=== PATIENT | female | born 1970 | race Caucasian/White ===

== ENCOUNTER → 2020-10-24 03:40 | Outpatient (CLI) | payer BC, SELFPAY ==
[2020-10-24 21:09] LABS: SARS-CoV-2 RNA PCR Negative
== END ==
PROVIDERS: PCP Family Medicine; Visit Provider Internal Medicine Gastroenterology
DX: Z01.812 Encounter for preprocedural laboratory examination (principal); Z20.822 Contact with and (suspected) exposure to COVID-19
CPT/HCPCS: C9803; U0003; U0005

== ENCOUNTER 2020-10-27 04:22 | Day surgery (SDC) | payer BC, SELFPAY ==
[2020-10-20 12:02] VITALS: BMI 43.5
--- NOTE | 2020-10-27 09:14 | WPDANESEPPF ---
Anes - Initial Pre Proc Eval Procedure: Operation Date: 10/27/20 11:45 Proposed Procedures p Screening Colonoscopy - Sammy Amador MD Date/Time: 10/27/20 09:14 Surgeon: Sammy Amador MD Pre Op Diagnosis: neoplasm screening Patient Data Age: 50 Gender: F Height: 1.57 m Weight: 108 kg Allergies Allergy/AdvReac Type Severity Reaction Status Date / Time Sulfa (Sulfonamide Allergy Unknown Nausea Verified 10/27/20 10:47 Antibiotics) Home Medications Medication Instructions Recorded Confirmed Type irbesartan 150 1 tablet PO DAILY #90 tablet 11/16/19 10/20/20 Rx mg-hydrochlorothiazide 12.5 mg tablet fexofenadine [Katia Allergy] 1 tab-cap PO DAILY 07/28/20 10/27/20 History Patient hx anesthesia problems: none Family hx anesthesia problems: none PMFSH Past Medical History Medical History (Updated 10/03/20 @ 17:16 by Bandar Ricks MD) Allergic rhinitis COVID-19 Dyspepsia Edema, peripheral Encounter for wellness examination in adult Essential (primary) hypertension Exposure to COVID-19 virus Family history of malignant neoplasm of colon in first degree relative diagnosed when younger than 60 years of age Hypersomnia Mildly obese Mixed hyperlipidemia Morbid obesity with BMI of 40.0-44.9, adult Obstructive sleep apnea UTI (urinary tract infection) Family History Family History (Updated 10/21/18 @ 17:10 by DOCTOR UNKNOWN) Mother Diabetes mellitus Family history of hypercholesterolemia Hypertension Sibling Family history of mental disorder Depression Hypertension Patient's sister is in good health Patient's sister is , Onset Age: 43 Carcinoma of colon Father Hypertension Grandparent Hypertension Family history of cardiovascular disease Acute myocardial infarction Family history of malignant neoplasm of brain Social History Social History (Updated 07/28/20 @ 08:23 by Pool Claudio CMA) Smoking status: Never smoker Alcohol intake: current Substance use: never Living arrangements: with family Gender identity (if verbalized by the patient): Female Spiritual care concerns: No Anes - Eval Final PreProcedure Day of Procedure 10/27/20 09:14 Patient weight: morbidly obese Heart: regular rate and rhythm Lungs: clear to auscultation and normal air movement Airway: Mallampati scale class II Neurological: alert and oriented Last oral intake: >/= 8 hours ASA classification: III Emergent: no Anesthetic plan: proceed Anesthesia type and monitoring: general GIVS Informed Consent: The patient's anesthetic plan and its attendant risks and benefits were discussed with the patient/family/POA. Questions were solicited and answers provided to the satisfaction of the patient/family/POA.
[2020-10-27 10:49] VITALS: BP 146/84; PULSE 82; RESP 20; TEMP 36.3; O2SAT 98
[2020-10-27] MEDS: LACTATED RINGERS 1,000 ML 150 ML IV CONT (11:00)
--- NOTE | 2020-10-27 11:30 | PM.HPGS ---
History of Present Illness History of Present Illness Consent: Risks, benefits, and alternatives have been discussed and questions answered. Patient agrees to proceed with procedure. Chief complaint: neoplasm screening Narrative: Nora De Santiago is a 50 year old female last colonoscopy 6 years ago, sister had colon cancer Review of Systems Constitutional: Constitutional: Denies headache(s) and Denies weakness Eyes: Eyes: Denies blurry vision ENT: Reports Normal hearing present, Denies headache(s) and Denies neck pain Cardiovascular: Cardiovascular: Denies chest pain and Denies dyspnea Respiratory: Respiratory: Denies dyspnea Gastrointestinal: Gastrointestinal: Reports no additional gastrointestinal complaints Genitourinary: Genitourinary: Denies dysuria Musculoskeletal: Musculoskeletal: Denies neck pain Integumentary/Breasts: Skin/Breast: Denies dry skin Neurologic: Reports Normal hearing present, Denies headache(s) and Denies weakness Psychiatric: Psychiatric: Denies anxiety Endocrine: Endocrine: Denies change in body appearance Hematologic/Lymphatic: Hematologic/Lymphatic: Denies easy bleeding Allergic/Immunologic: Allergic/Immunologic: Denies urticaria PMFSH Past Medical History Medical History (Updated 10/03/20 @ 17:16 by Bandar Ricks MD) Allergic rhinitis COVID-19 Dyspepsia Edema, peripheral Encounter for wellness examination in adult Essential (primary) hypertension Exposure to COVID-19 virus Family history of malignant neoplasm of colon in first degree relative diagnosed when younger than 60 years of age Hypersomnia Mildly obese Mixed hyperlipidemia Morbid obesity with BMI of 40.0-44.9, adult Obstructive sleep apnea UTI (urinary tract infection) Family History Family History (Updated 10/21/18 @ 17:10 by DOCTOR UNKNOWN) Mother Diabetes mellitus Family history of hypercholesterolemia Hypertension Sibling Family history of mental disorder Depression Hypertension Patient's sister is in good health Patient's sister is , Onset Age: 43 Carcinoma of colon Father Hypertension Grandparent Hypertension Family history of cardiovascular disease Acute myocardial infarction Family history of malignant neoplasm of brain Social History Social History (Updated 07/28/20 @ 08:23 by Pool Claudio [facility]) Smoking status: Never smoker Alcohol intake: current Substance use: never Living arrangements: with family Gender identity (if verbalized by the patient): Female Spiritual care concerns: No Meds Home Medications and Allergies Home Medications Medication Instructions Recorded Confirmed Type irbesartan 150 1 tablet PO DAILY #90 tablet 11/16/19 10/20/20 Rx mg-hydrochlorothiazide 12.5 mg tablet fexofenadine [Katia Allergy] 1 tab-cap PO DAILY 07/28/20 10/27/20 History Allergies Allergy/AdvReac Type Severity Reaction Status Date / Time Sulfa (Sulfonamide Allergy Unknown Nausea Verified 10/27/20 10:47 Antibiotics) Vital Signs Vital Signs - 24 hr 10/27/20 10:49 Temperature 97.4 F L Pulse Rate 82 Respiratory Rate 20 Blood Pressure 146/84 H Pulse Oximetry 98 Exam Const: General: comfortable and no acute distress HENMT: General nose exam: Normal nares present Eyes: General: appearance normal, both eyes and all related structures Neck: Neck: no JVD Resp: Auscultation: clear to auscultation bilaterally Cardio: Rate: regular rate Rhythm: regular rhythm GI: Inspection: non-distended GI Palp: Yes Soft to palpation Skin: General skin exam: normal color Neuro: General: gait normal Speech: normal speech Extrem: General: normal to inspection Psych: Mental Status: mental status grossly normal Assessment and Plan Assessment and plan (1) Family history of malignant neoplasm of colon in first degree relative diagnosed when younger than 60 years of age: Code(s): Z80.0 - Fam
[2020-10-27 11:46] VITALS: BP 106/57; PULSE 74; RESP 15; O2SAT 98
[2020-10-27 11:56] VITALS: BP 112/62; PULSE 67; RESP 15; O2SAT 98
== END 2020-10-27 12:15 | disposition home or self-care (01) ==
PROVIDERS: PCP Family Medicine; Visit Provider Internal Medicine Gastroenterology
PROC: 0DJD8ZZ Inspection of Lower Intestinal Tract, Via Natural or Artificial Opening Endoscopic (ICD-10-PCS; CPT 45378; principal; 2020-10-27 11:45)
DX: Z12.11 Encounter for screening for malignant neoplasm of colon (principal); D12.2 Benign neoplasm of ascending colon; Z80.0 Family history of malignant neoplasm of digestive organs; I10 Essential (primary) hypertension; E66.9 Obesity, unspecified; E78.2 Mixed hyperlipidemia; G47.33 Obstructive sleep apnea (adult) (pediatric); G47.10 Hypersomnia, unspecified
CPT/HCPCS: 45385; 88305; C9803; J2704; J7120; U0003; U0005

== ENCOUNTER 2021-03-14 07:37 | Outpatient (RCR) | payer BC, SELFPAY ==
[2021-03-14 09:15] VITALS: BP 136/87; PULSE 78; RESP 20; TEMP 36.2; O2SAT 98
[2021-03-14] MEDS: ACETAMINOPHEN 325 MG TABLET 650 MG PO (09:18)
[2021-03-14] MEDS: diphenhydrAMINE HCl CAP 25 MG CAPSULE PO (09:19)
[2021-03-14] MEDS: FAMOTIDINE 20 MG TABLET PO (09:19)
[2021-03-14 10:50] VITALS: BP 144/78; PULSE 68; O2SAT 100
== END 2021-03-14 17:00 ==
LOC: AMCINF 07:37
PROVIDERS: PCP Family Medicine; Referring Provider Family Medicine; Visit Provider Internal Medicine Hematology & Oncology
DX: U07.1 COVID-19 (principal); I10 Essential (primary) hypertension
CPT/HCPCS: A9270; M0247

== ENCOUNTER 2024-10-03 09:52 | Emergency (ER) | payer OTHER, SELFPAY ==
--- NOTE | 2024-10-03 09:59 | ED_ITS ---
HPI - Skin/Abscess/Foreign Bdy General Chief complaint: Skin/Abscess/Foreign Body Stated complaint: RASH Time Seen by Provider: 10/03/24 09:59 Source: patient Mode of arrival: ambulatory Limitations: no limitations History of Present Illness HPI narrative: Nora is a 54-year-old female patient presenting to the clinic today with complaints of a rash in her right elbow, left fold of neck, under bilateral breast, under her pannus/abdomen fold, and in the folds of her groin. She reports rash is red, itchy, and acevedo. Symptoms started on Friday. Was Rx prednisone 20mg daily by her PCP and this is not helping. No fever, chills, or body aches. No environment changes, no new soaps, shampoos, detergents, or medications other than prednisone. Related Data Home Medications ?Medication ?Instructions ?Recorded ?Confirmed ?Last Taken ?Type fexofenadine [[place] Allergy] 1 tab-cap PO DAILY PRN Allergies 01/08/21 09/23/24 Unknown History fluticasone propionate 50 1 spray intranasal BID 07/11/22 09/23/24 Unknown History mcg/actuation nasal spray,suspension (Flonase Allergy Relief) Allergies Allergy/AdvReac Type Severity Reaction Status Date / Time Sulfa (Sulfonamide Allergy Unknown Nausea Verified 10/03/24 10:05 Antibiotics) Review of Systems Review of Systems: Pertinent positives per HPI. Patient denies any fever, chills, headache, visual changes, dizziness, cough, runny nose, sore throat, shortness of breath, chest pain, palpitations, nausea, vomiting, diarrhea, constipation, abdominal pain, or any urinary issues. [facility] Past Medical History Medical History Plant dermatitis Hemorrhoids Middle cerebral artery aneurysm MRI of the brain 01/06/2024 with no change of the right MCA aneurysm followed by neurosurgeon. Recheck annually. Acute non-recurrent maxillary sinusitis Breast cancer screening by mammogram mammogram 09/09/2023 with no suspicious lesions. Fibrous breasts. Ocular migraine (08/04/22) CT of the brain, MRI of the brain, cerebral angiogram with minor changes Multiple lesions on CT of brain and spine (08/04/22) 7 mm lytic lesion left clivus with lytic lesions of C2, C3, and C5 on CT of the brain and CT a of the head and neck on 08/04/2022. Seasonal allergic rhinitis Abnormal fasting glucose (07/03/22) fasting glucose 105 on 07/03/2022. Glucose 95 with hemoglobin A1c 4.9 on 01/13/2023. Fasting glucose 92 with hemoglobin A1c 5.5 on 07/26/2023. Glucose 81, hemoglobin A1c 5.3, urine microalbumin ratio of 2 and GFR 68 on 12/31/2023. Acute low back pain without sciatica Lesion of skin of face Screening for diabetes mellitus (DM) Acute bronchitis COVID-19 (03/05/21) 2nd infection with positive test 03/11/2021 Polyp of colon (10/27/20) The patient had a colonoscopy on 10/27/[address] Stephenson with 3 small polyps of the ascending colon. Recheck in 5 years. UTI (urinary tract infection) E coli on 05/16/2022. Dyspepsia Morbid obesity with BMI of 40.0-44.9, adult COVID-19 (~02/18/20) Exposure to COVID-19 virus Mildly obese Encounter for wellness examination in adult Obstructive sleep apnea (~01/06/19) home sleep study 01/06/2019 with [facility] with AHI 8.8 and oxygen saturation at 90% with need for CPAP titration. Edema, peripheral Family history of malignant neoplasm of colon in first degree relative diagnosed when younger than 60 years of age Hypersomnia Mixed hyperlipidemia total cholesterol 207, HDL 39, triglycerides 248, LDL 130 with ratio 5.3 on 07/03/2022. total cholesterol 196, HDL 40, triglycerides 268, LDL 118 with ratio 4.9 on 01/13/2023. Cholesterol 211, HDL 40, triglycerides 283, LDL 127 with ratio 5.3 on 07/26/2023. Cholesterol 191, triglycerides 358, HDL 38, LDL 105 with ratio of 5.0 on 12/31/2023. Essential (primary) hypertension Surgical History Surgical History History of delivery x 2 H/O: hysterectomy Family History Family History Mother Diabetes mellitus Family history of hypercholesterolemia Hypertension Dementia Sibling Family history of mental disorder Depression Hypertension Patient's sister is in good health Patient's sister is , Onset Age: 43 Carcinoma of colon Father Hypertension Grandparent Hypertension Family history of cardiovascular disease Acute myocardial infarction Family history of malignant neoplasm of brain Social History Social History Smoking status: Never smoker Second hand tobacco smoke exposure: No Alcohol intake: current Alcohol use details: very rarely Substance use: never Substance use type: does not use Do You Feel Safe in your Home?: Yes Lack of Transportation: No Lack of Food: Never True Current Housing: I Have Housing Concerned About Future Housing: No Difficulty Paying Gas/Electric Bills: No Difficulty Paying for Meds: No Currently Unemployed: No Education: High School Diploma/GED Difficulty w/ Childcare or Family Care: No Living arrangements: with family Additional living arrangements comments: Occupation/Education: occupation 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 There is no relevant family history pertinent to the patient complaint. Exam Narrative: General: Well-developed, morbidly obese, in no apparent distress Head: Normocephalic, atraumatic. Cardio: Regular rate and rhythm, s1 and s2 normal, no murmur appreciated. Resp: Clear to auscultation bilaterally, no rhonchi, rales, wheezing or rubs. Integumentary: [place], warm, and dry, red, excoriated, itchy rash should to the fold of the left neck, right elbow, under bilateral breasts, under pannus, and in the groin folds, no obvious discharge, skin is peeling and tender/burning Course Course Emergency Course: Portions of this record may have been created with voice recognition software. Level of Care: Express Care Visit Vital Signs Vital signs: Vital Signs Temperature 36.3 C L 10/03/24 10:05 Pulse Rate 80 10/03/24 10:05 Respiratory Rate 16 10/03/24 10:05 Blood Pressure 139/84 10/03/24 10:05 Pulse Oximetry 100 10/03/24 10:05 Temperature 36.3 C L 10/03/24 10:05 Pulse Rate 80 10/03/24 10:05 Respiratory Rate 16 10/03/24 10:05 Blood Pressure 139/84 10/03/24 10:05 Pulse Oximetry 100 10/03/24 10:05 Vital signs reviewed MDM - Skin/Abscess/Foreign Bdy MDM Narrative Medical decision making narrative: At the time of visit patient is resting comfortably on the exam table. Patient appears to be nontoxic. Complaints of a rash in her right elbow, left fold of neck, under bilateral breast, under her pannus/abdomen fold, and in the folds of her groin. She reports rash is red, itchy, and acevdeo. Symptoms started on Friday. Was Rx prednisone 20mg daily by her PCP and this is not helping. No fever, chills, or body aches. No environment changes, no new soaps, shampoos, detergents, or medications other than prednisone. Skin in the abdominal folds and groin folds appear to be peeling-felt on that the rash/skin was swelling. No drainage from the rash Plan: I suspect patient has intertrigo. Prescription for triamcinolone/nystatin cream was sent to the pharmacy. Will have her hold taking the prednisone as this is not helping her symptoms. Supportive measures were discussed with the patient and they voiced understanding discharge instructions and agrees to treatment plan. Return precautions reviewed Differential Diagnosis Differential diagnosis: Likely abscess of skin or subcutaneous tissue, viral exanthem, dermatophytosis, urticaria, herpes zoster, allergic reaction to drug, cellulitis, eczema, insect bites, impetigo and contact dermatitis Discharge Plan Discharge Clinical Impression: Intertrigo Patient Disposition: Home Condition: Stable Instructions: Antibiotic Form, Eczema (ED), Skin Yeast Infection (ED) Additional Instructions: Keep area clean and dry as much as possible May place a washcloth in the folds to help absorb moisture Apply triamcinolone/nystatin cream to the affected area twice daily times 14 days Hold taking the prednisone at this time Follow-up with your PCP in 1 week if symptoms persist or sooner if they worsen Patient Language: Chinese Prescriptions: New nystatin-triamcinolone 100,000-0.1 unit/g-% cream 1 applic topical BID 14 Days Qty: 60 0RF No Action fexofenadine [Katia Allergy] 1 tab-cap PO DAILY PRN (Reason: Allergies) fluticasone propionate [Flonase Allergy Relief] 50 mcg/actuation spray,suspension 1 spray intranasal BID Rx Instructions: administer into each nostril irbesartan-hydrochlorothiazide 150-12.5 mg tablet 1 tablet PO DAILY Qty: 90 3RF hydrocortisone [Anusol-HC] 2.5 % cream with perineal applicator 1 applic RECTAL BID-TID PRN (Reason: hemorrhoids) Qty: 30 2RF Zepbound 7.5 mg/0.5 mL pen injector 7.5 mg subcut WEEKLY Qty: 2 5RF prednisone 20 mg tablet 20 mg PO DAILY Qty: 7 0RF Follow-up/Referrals: Bandar Ricks MD [Primary Care Provider] - Time of Disposition: 10:10 Quality NIHSS Nursing Documentation ED NIHSS nursing documentation: reviewed/agree
[2024-10-03 10:05] VITALS: BP 139/84; PULSE 80; RESP 16; TEMP 36.3; O2SAT 100
== END 2024-10-03 10:17 | disposition home or self-care (01) ==
PROVIDERS: Emergency Provider Nurse Practitioner Family; PCP Family Medicine
DX: L30.4 Erythema intertrigo (principal); E78.2 Mixed hyperlipidemia; I10 Essential (primary) hypertension; E66.01 Morbid (severe) obesity due to excess calories; Z68.39 Body mass index [BMI] 39.0-39.9, adult
CPT/HCPCS: 99213; G0463